=== PATIENT | male | born 1980 | race Caucasian/White ===

== ENCOUNTER 2018-03-28 09:06 | Emergency (ER) | payer SELFPAY ==
[~2018-03-28] VITALS: Ht 182.9 cm; Wt 88.6 kg
[~2018-03-28 09:06] MED LIST: CEPHALEXIN500 M1 PO; FLOMAX 0.40.4 MG/CAP PO; LORTAB 5/500 501 TAB PO; NO HOME MEDICATIONS; NORCO 325 MG-51 TAB PO; ROBAXIN 50500 MG/TAB PO; ULTRAM 50MG TAB50 MG PO; VICODIN 5/300 PO; VOLTAREN 75 DR75 MG PO; ZOFRAN 4MG T4 MG/TAB PO
[2018-03-28 09:29] VITALS: BP 146/93; TEMP 98.5
[2018-03-28] MEDS ORDERED: NAPROSYN500 MG PO (10:08)
[2018-03-28 10:32] VITALS: PULSE 91
== END 2018-03-28 10:33 | disposition home or self-care (01) ==
LOC: COL.ER 09:06
DX: S20.211A Contusion of right front wall of thorax, initial encounter (principal); V92.03XA Drowning and submersion due to fall off other powered watercraft, initial encounter
CPT/HCPCS: A9284

== ENCOUNTER 2018-06-22 03:08 | Emergency (ER) | payer SELFPAY ==
[~2018-06-22] VITALS: Ht 182.9 cm; Wt 86.4 kg
[~2018-06-22 03:08] MED LIST changes: +NAPROSYN500 MG PO
[2018-06-22 03:14] VITALS: TEMP 97.6
[2018-06-22 03:48] LABS: BASO # 0.1 (0.0-0.2); BASO % 1.4 % (0.0-2.0); EOS # 0.5 (0.0-0.7); EOS % 7.9 % (0-4.0); GRAN # 3.3 (1.4-6.5); HEMATOCRIT 39.6 % (42.0-52.0); HEMOGLOBIN 13.9 g/dl (13.5-18.0); LYMPH # 1.4 (1.2-3.4); LYMPH % 23.6 % (20.0-51.0); MEAN CELL VOLUME 87 fl (80.0-100.0); MEAN CORPUSCULAR HEMOGLOBIN 31 pg (27.0-31.0); MEAN CORPUSCULAR HGB CONC 35 g/dl (33.0-37.0); MEAN PLATELET VOLUME 9.7 fl (7.4-10.4); MONO # 0.6 (0.1-0.6); MONO % 9.9 % (1.7-9.3); PLATELET COUNT 241 K/mm3 (130-400); RED BLOOD COUNT 4.55 M/mm3 (4.20-5.60); REDCELL DISTRIBUTION WIDTH-CV 12.8 % (11.5-14.5)
[2018-06-22 03:53] LABS: PROTHROMBIN TIME 11.7 SECONDS (9.7-12.8)
[2018-06-22 03:56] LABS: PARTIAL THROMBOPLASTIN TIME 33.1 SECONDS (26.0-37.0)
[2018-06-22 03:58] LABS: ALBUMIN 3.9 gm/dL (3.5-5.0); BILIRUBIN,TOTAL 0.4 mg/dL (0.0-1.0); CREATININE, serum 1.03 mg/dL (0.66-1.25); POTASSIUM 3.1 mmol/L (3.4-5.0); TOTAL PROTEIN 6.8 gm/dL (6.4-8.2)
[2018-06-22] MEDS ORDERED: NORCO 325 MG-51 TAB PO (06:14)
[2018-06-22] MEDS ORDERED: FLEXERIL 1010 MG/TAB PO (06:14)
[2018-06-22 06:32] LABS: COLLECTION METHOD CLEAN CATCH
[2018-06-22 07:00] LABS: MUCOUS Present /lpf; PH 6 (5-8); SQUAMOUS EPITHELIAL None Seen /hpf; URINE APPEARANCE Clear; URINE BACTERIA None Seen /hpf; URINE BILIRUBIN Negative (NEGATIVE); URINE BLOOD Negative (NEGATIVE); URINE COLOR Yellow; URINE GLUCOSE Negative (NEGATIVE); URINE KETONE Trace (NEGATIVE); URINE LEUKOCYTE ESTERASE Negative (NEGATIVE); URINE NITRATE Negative (NEGATIVE); URINE PROTEIN(semi-quant) Negative (NEGATIVE); URINE RBC 0-2 /hpf; URINE UROBILINOGEN Negative (NEGATIVE)
[2018-06-22] MEDS ORDERED: WALKER MC (08:12)
[2018-06-22] MEDS ORDERED: CRUTCHES MC (08:12)
[2018-06-22 08:32] VITALS: BP 122/83; PULSE 80
== END 2018-06-22 08:50 | disposition home or self-care (01) ==
LOC: COL.ER 03:08
PROVIDERS: Emergency Medicine
DX: S70.02XA Contusion of left hip, initial encounter (principal); V03.90XA Pedestrian on foot injured in collision with car, pick-up truck or van, unspecified whether traffic or nontraffic accident, initial encounter; Y92.410 Unspecified street and highway as the place of occurrence of the external cause
CPT/HCPCS: J1885; J3010; J3480; J7030

== ENCOUNTER 2018-08-01 22:12 | Emergency (ER) | payer SELFPAY ==
[~2018-08-01] VITALS: Ht 198.1 cm; Wt 86.4 kg
[~2018-08-01 22:12] MED LIST changes: +CRUTCHES MC; +FLEXERIL 1010 MG/TAB PO; +WALKER MC
[2018-08-01 22:28] VITALS: TEMP 98.1
[2018-08-01 23:24] LABS: BASO # 0.1 (0.0-0.2); BASO % 0.9 % (0.0-2.0); EOS # 0.3 (0.0-0.7); EOS % 3.8 % (0-4.0); GRAN # 4.7 (1.4-6.5); GRAN % 59.2 % (42.2-75.2); HEMATOCRIT 40.8 % (42.0-52.0); HEMOGLOBIN 14.2 g/dl (13.5-18.0); LYMPH # 2.2 (1.2-3.4); LYMPH % 27.8 % (20.0-51.0); MEAN CELL VOLUME 88 fl (80.0-100.0); MEAN CORPUSCULAR HEMOGLOBIN 31 pg (27.0-31.0); MEAN CORPUSCULAR HGB CONC 35 g/dl (33.0-37.0); MEAN PLATELET VOLUME 9.9 fl (7.4-10.4); MONO # 0.6 (0.1-0.6); PLATELET COUNT 209 K/mm3 (130-400); RED BLOOD COUNT 4.66 M/mm3 (4.20-5.60)
[2018-08-01 23:42] LABS: ALBUMIN 4.3 gm/dL (3.5-5.0); CALCIUM 9.3 mg/dL (8.4-10.2); CREATININE, serum 0.94 mg/dL (0.66-1.25); POTASSIUM 3.4 mmol/L (3.4-5.0); TOTAL PROTEIN 7.2 gm/dL (6.4-8.2)
[2018-08-02 00:04] LABS: COLLECTION METHOD CLEAN CATCH
[2018-08-02 00:10] LABS: MUCOUS Present /lpf; PH 5 (5-8); SQUAMOUS EPITHELIAL None Seen /hpf; URINE APPEARANCE Hazy; URINE BACTERIA None Seen /hpf; URINE BILIRUBIN Negative (NEGATIVE); URINE BLOOD 3+ (NEGATIVE); URINE COLOR Yellow; URINE GLUCOSE Negative (NEGATIVE); URINE KETONE 2+ (NEGATIVE); URINE LEUKOCYTE ESTERASE Negative (NEGATIVE); URINE NITRATE Negative (NEGATIVE); URINE PROTEIN(semi-quant) 1+ (NEGATIVE); URINE RBC >50 /hpf; URINE UROBILINOGEN Negative (NEGATIVE)
[2018-08-02] MEDS ORDERED: ZOFRAN ODT4 MG PO (01:35)
[2018-08-02] MEDS ORDERED: NORCO 325 MG-51 TAB PO (01:35)
[2018-08-02 02:04] VITALS: BP 137/85; PULSE 76
== END 2018-08-02 02:07 | disposition home or self-care (01) ==
LOC: COL.ER 22:12
PROVIDERS: Emergency Medicine; Physician Assistant
DX: N23 Unspecified renal colic (principal); N20.1 Calculus of ureter; Z87.442 Personal history of urinary calculi; Z87.891 Personal history of nicotine dependence
CPT/HCPCS: J1885; J3010; J7030

== ENCOUNTER 2018-10-08 22:38 | Emergency (ER) | payer SELFPAY ==
[~2018-10-08] VITALS: Ht 182.9 cm; Wt 86.4 kg
[~2018-10-08 22:38] MED LIST changes: +ZOFRAN ODT4 MG PO
[2018-10-08 23:06] VITALS: TEMP 98.4
[2018-10-09 01:22] LABS: COLLECTION METHOD CLEAN CATCH
[2018-10-09 01:34] LABS: MUCOUS Present /lpf; PH 5 (5-8); SQUAMOUS EPITHELIAL 0-2 /hpf; URINE APPEARANCE Cloudy; URINE BACTERIA Rare /hpf; URINE BILIRUBIN Negative (NEGATIVE); URINE BLOOD 3+ (NEGATIVE); URINE CALCIUM OXALATE CRYSTAL Present /hpf; URINE COLOR Yellow; URINE GLUCOSE Negative (NEGATIVE); URINE KETONE Negative (NEGATIVE); URINE LEUKOCYTE ESTERASE Negative (NEGATIVE); URINE NITRATE Negative (NEGATIVE); URINE PROTEIN(semi-quant) 1+ (NEGATIVE); URINE RBC 20-50 /hpf; URINE UROBILINOGEN Negative (NEGATIVE)
[2018-10-09] MEDS ORDERED: NORCO 325 MG-51 TAB PO (02:01)
[2018-10-09 02:20] VITALS: BP 141/93; PULSE 92
== END 2018-10-09 02:20 | disposition home or self-care (01) ==
LOC: COL.ER 22:38
PROVIDERS: Nurse Practitioner
DX: R10.9 Unspecified abdominal pain (principal); R31.9 Hematuria, unspecified; Z87.442 Personal history of urinary calculi; F17.290 Nicotine dependence, other tobacco product, uncomplicated
CPT/HCPCS: J1885; J2405; J7030